=== PATIENT | female | born 1945 | race Two or more races ===

== ENCOUNTER 2016-06-01 12:26 | Emergency (ER) | payer MEDICARE ==
--- NOTE | 2016-06-01 14:17 | RAD ---
CHEST 2 VIEWS HISTORY: Cough and fever. Frontal and lateral chest radiographs dated 06/01/2016. COMPARISON: 01/05/2015. FINDINGS: FOCAL AIRSPACE OPACITY: No gross airspace consolidation. PLEURAL EFFUSION: None. CARDIOMEDIASTINAL SILHOUETTE: Nonenlarged. PNEUMOTHORAX: None identified. OSSEOUS STRUCTURES: Early mid thoracic disc degeneration. IMPRESSION: No acute cardiopulmonary process noted.
== END 2016-06-01 14:49 | disposition home or self-care (01) ==
LOC: ED 12:26
DX: J11.1 Influenza due to unidentified influenza virus with other respiratory manifestations (principal); I10 Essential (primary) hypertension